=== PATIENT | female | born 1955 | race Caucasian/White ===

== ENCOUNTER 2022-07-07 14:54 | Emergency (ER) | payer MEDICARE, SELFPAY ==
[2022-07-07 16:25] VITALS: BP 182/84; PULSE 83; RESP 23; TEMP 36.9; O2SAT 94; BMI 21.2
--- NOTE | 2022-07-07 16:25 | XR_ITS ---
PROCEDURE INFORMATION: Exam: XR Chest Exam date and time: 07/07/2022 4:42 PM Age: 67 years old Clinical indication: Pain; On breathing; Additional info: Productive cough TECHNIQUE: Imaging protocol: Radiologic exam of the chest. Views: 2 views. COMPARISON: No relevant prior studies available. FINDINGS: Lungs: There is a 2 cm indistinct irregular shaped nodular density projecting over the right lower lobe as well as a vague focal opacity projecting just below the left clavicle, indeterminate. There are scattered small circumscribed nodular densities both lung angel consistent with old granulomatous disease. Remaining lung angel are clear. There are no infiltrates. Pleural spaces: Unremarkable. No pleural effusion. No pneumothorax. Heart/Mediastinum: Unremarkable. No cardiomegaly. Bones/joints: Unremarkable. IMPRESSION: Two indeterminate focal opacities both lung angel as discussed above which follow-up nonemergent CT chest recommended for further assessment.
--- NOTE | 2022-07-07 16:32 | EXP.UTC ---
Discharge Plan Disposition Patient Disposition: Home, Self-Care Condition: Good Prescriptions Prescriptions: New promethazine-DM 6.25-15 mg/5 mL Syrup 5 ml PO Q6H PRN (Reason: Cough) Qty: 240 0RF prednisone 10 mg tablet 10 mg PO DIRECTED 9 Days Qty: 21 0RF Rx Instructions: Take 4 tablets daily for 3 days, then take 2 tablets daily for 3 days, then take 1 tablet daily for 3 days, then stop. benzonatate [benzonatate] 100 mg capsule 100 mg PO TIDP PRN (Reason: Cough) Qty: 30 0RF cefdinir 300 mg capsule 300 mg PO BID Qty: 20 0RF Referrals Follow up/Referrals: Mary Pugh MD [Primary Care Provider] - See instructions Activity Restrictions/Add. Instructions Additional Instructions/Restrictions: Drink plenty of fluids. Take tylenol or ibuprofen for pain or fever. Take the medications as directed. Follow up with your regular doctor. GO TO THE ER FOR ANY WORSENING SYMPTOMS Don't start the oral steroids until tomorrow, since you had the shot here today. The cough medication (promethazine dm) will make you drowsy, so don't drive or operate heavy machinery after taking it. Clinical Impressions Clinical Impression: Acute bronchitis Instructions Patient Instructions: Acute Bronchitis, DI for Acute Bronchitis Discharge ED Provider: Will Elliott [facility] General Stated complaint: Persistant Cough Time Seen by Provider: 07/07/22 16:31 History of Present Illness Provider Complaint: She was in the hospital in [place] approx 1 month ago with difficulty breathing. She has a history of type 1 diabetes and copd. She states that for the past 5 days she has had worsening chest congestion and a productive cough with yellowish sputum. She denies shortness of breath at this time, but she states that she doesn't want to let herself get as sick as she did before when she got admitted to the hospital. She denies any fever or chills. Related Data Previous Rx's Medication Instructions Recorded benzonatate 100 mg capsule 100 mg PO TIDP PRN Cough #30 caps 07/07/22 cefdinir 300 mg capsule 300 mg PO BID #20 caps 07/07/22 prednisone 10 mg tablet 10 mg PO DIRECTED 9 days #21 07/07/22 tabs promethazine-DM 6.25 mg-15 mg/5 mL 5 ml PO Q6H PRN Cough #240 mL 07/07/22 oral syrup Allergies Allergy/AdvReac Type Severity Reaction Status Date / Time acetaminophen [From Tylenol] Allergy Verified 07/07/22 16:46 codeine Allergy Verified 07/07/22 16:46 Iodinated Contrast Media Allergy Verified 07/07/22 16:46 latex Allergy Verified 07/07/22 16:46 morphine Allergy Verified 07/07/22 16:46 PFS PFS Disclaimer: The information contained in this section may have been updated after the patient was seen, as this information can be updated by other users. Medical History Anxiety Depression Diabetes mellitus, type 2 History of gastroesophageal reflux (GERD) Hyperlipidemia Hypertension Kidney stone Migraine Seizure disorder Thyroid disease Urinary tract infection Surgical History History of cholecystectomy History of hysterectomy History of tubal ligation Social History Smoking Status: Unknown if ever smoked alcohol intake: never current occupational status: other Travel in the last 8 weeks: None ROS Obtained: Yes All systems reviewed & no additional complaints except as documented Constitutional Constitutional: Reports chills and Denies fever(s) Eyes Eyes: Denies eye discharge ENT Ears, Nose, Mouth, and Throat: Reports as per HPI Cardiovascular Cardiovascular: Denies chest pain Respiratory Respiratory: Denies shortness of breath, Reports chest congestion, Reports cough, Denies stridor and Denies wheezing Gastrointestinal Gastrointestingal: Reports nausea; Denies abdominal pain, constipation, crampin
[2022-07-07 17:27] VITALS: BP 182/84; PULSE 83; RESP 23; TEMP 36.9; O2SAT 94
== END 2022-07-07 17:32 | disposition home or self-care (01) ==
PROVIDERS: Emergency Provider Nurse Practitioner Family; PCP Family Medicine
DX: J20.9 Acute bronchitis, unspecified (principal)
CPT/HCPCS: 71046; 99212; G0463

== ENCOUNTER 2024-09-10 15:05 | Observation (INO) | payer MEDICARE, SELFPAY ==
[2024-09-10] VITALS (15 sets, daily range): BP systolic 145–200; BP diastolic 67–93; PULSE 70–84; RESP 16–22; TEMP 36.6–36.8; O2SAT 92–99; BMI 28.5; BMI 24.0
--- NOTE | 2024-09-10 15:00 | ECG_ITS ---
APPROVED REPORT Exam: Resting ECG HR:73 bpm ECG Measurements Heart Rate 73 AXES AZ 151 P 59 QRSd 86 QRS 51 QT 433 T 57 QTc 458 Conclusion Sinus rhythm Likely old septal NE No acute ischemic change Electronically signed by : MARCELINA KOCH, 09/10/2024 22:05:38
--- NOTE | 2024-09-10 15:27 | [facility].EDGENADL ---
Discharge Plan Disposition Patient Disposition: Admitted Clinical Impressions Clinical Impression: Occipital stroke, Syncope, Back pain Discharge ED Provider: Sp Esparza General Adult HPI <MYKEL Marie - Last Filed: 09/10/24 15:37> General Chief complaint: Chest Pain Stated complaint: hypotension Time Seen by Provider: 09/10/24 15:07 Mode of Arrival: EMS Source of Information: EMS Limitations: No Limitations Description of Symptoms (Recalled from ER Triage Doc. by RN): pt presents with EMS. per report pt had bp med change approx a week ago and has been experiencing low bp. pt states she is having mid shoulder blade pain and nausea. per report pt was admitted at [facility] a month ago for afib. pt currently wearing a halter monitor. Related Data Previous Rx's ?Medication ?Instructions ?Recorded benzonatate 100 mg capsule 100 mg PO TIDP PRN Cough #30 caps 07/07/22 cefdinir 300 mg capsule 300 mg PO BID #20 caps 07/07/22 prednisone 10 mg tablet 10 mg PO DIRECTED 9 days #21 07/07/22 tabs promethazine-DM 6.25 mg-15 mg/5 mL 5 ml PO Q6H PRN Cough #240 mL 07/07/22 oral syrup Allergies Allergy/AdvReac Type Severity Reaction Status Date / Time codeine Allergy Mild Rash Verified 09/10/24 15:17 Iodinated Contrast Media Allergy Unknown pt unable Verified 09/10/24 15:17 to recall latex Allergy Unknown pt unable Verified 09/10/24 15:17 to recall morphine Allergy Unknown pt uable Verified 09/10/24 15:17 to recall Penicillins Allergy Unknown pt unable Verified 09/10/24 15:17 to recall propranolol Allergy Unknown pt unable Verified 09/10/24 15:17 to recall acetaminophen (From Tylenol) Allergy Rash Verified 09/10/24 15:17 <Sp Esparza MD - Last Filed: 09/10/24 21:59> History of Present Illness HPI narrative: Please note that above description of symptoms, in this electronic medical record under categorization of recalled from ER triage doctor by RN are reflective of an initial nursing assessment, however, is not reflective of my full history and physical exam that was personally taken and clarified. Consequentially, this preceding description of symptoms, which may include the patient's categorized chief complaint in the EMR, do not reflect my personal clinical impression, and the ultimate description of history of present illness and patient stated complaints should be deferred to this section of the note. Unless stated otherwise or congruent with this section of the note, additional signs, symptoms, or incongruence should be interpreted as inaccurate with my clinical impression. [facility] <MYKEL Marie - Last Filed: 09/10/24 15:37> [facility] Disclaimer: The information contained in this section may have been updated after the patient was seen, as this information can be updated by other users. Medical History Kidney failure COPD (chronic obstructive pulmonary disease) Afib CHF (congestive heart failure) Schizophrenia Thyroid disease Depression Anxiety Seizure disorder History of gastroesophageal reflux (GERD) Urinary tract infection Kidney stone Migraine Diabetes mellitus, type 2 Hyperlipidemia Hypertension Surgical History History of tubal ligation History of hysterectomy History of cholecystectomy Social History Smoking Status: Former smoker alcohol intake: never current occupational status: other Travel in the last 8 weeks: None Have you lived/traveled outside [place] in past 30 days?: No Contact w/someone who lives/traveled outside US past 30 days?: No Exposure to someone with infectious disease in past 14 days?: No Do you have a fever (greater than 100.4 F or 38 C)?: No Have you tested positive for COVID-19: No Exposed to someone with COVID-19 in past 14 days?: No Do you have a sore throat?: No Do you have a cough?: No Do you have any weakness?: No Do you have any diarrhea?: No Are you experiencing any unusual bleeding?: No Do you have any muscle aches/pain?: No Do you have any abdominal pain?: No Are you experiencing loss of taste or smell?: No <MYKEL Marie - Last Filed: 09/10/24 15:37> ROS Obtained: Yes Systems reviewed as appropriate & no additional complaints except as documented Physical Exam <MYKEL Marie - Last Filed: 09/10/24 15:37> General General appearance: alert and in no apparent distress Head Head exam: atraumatic and normal inspection Eye Eye exam: Present normal appearance, PERRL and EOMI ENT ENT exam: Present normal exam, normal oropharynx and mucous membranes moist Neck Neck exam: Present normal inspection, full ROM and trachea midline; Absent lymphadenopathy Chest Chest inspection: Present normal inspection and symmetric chest wall rise Respiratory Respiratory exam: Present normal lung sounds bilaterally; Absent accessory muscle use Cardiovascular Cardiovascular exam: Present regular rate, normal rhythm, normal heart sounds, +S1 and +S2 Abdominal Exam Abdominal exam: Present soft and normal bowel sounds; Absent tenderness, guarding or rebound Extremities Exam Extremities exam: Present normal inspection and full ROM Neurological Exam Neurological exam: Present alert, oriented X3 and CN II-XII intact Psychiatric Psychiatric exam: Present normal affect and normal mood Skin Skin exam: Present warm, dry and normal color Lymphatic Lymphatic Findings: no adenopathy Medical Decision Making <MYKEL aMrie - Last Filed: 09/10/24 15:37> Medical Records Screening: Per USPSTF and CDC recommendations, given the prevalence of disease in our region, it is our hospital?s policy to screen for HIV and viral Hepatitis for all patients aged 18 and over and those with ongoing risk factors. Vital Signs: 09/10/24 15:06 09/10/24 15:47 09/10/24 16:15 Temperature 97.8 F Temperature Source Oral Pulse Rate Pulse Rate [Right Radial] 70 Respiratory Rate 18 19 21 Blood Pressure 162/67 H Blood Pressure [Right Arm] 155/69 H Blood Pressure Mean [Right Arm] 97 Blood Pressure Source [Right Arm] Automatic Cuff Blood Pressure Position [Right Arm] Sitting 02 Sat by Pulse Oximetry 99 Oxygen Delivery Method Room Air Room Air 09/10/24 16:26 09/10/24 16:30 09/10/24 16:33 Temperature Temperature Source Pulse Rate 71 71 Pulse Rate [Right Radial] Respiratory Rate 17 16 18 Blood Pressure 178/84 H 200/93 H Blood Pressure [Right Arm] Blood Pressure Mean [Right Arm] Blood Pressure Source [Right Arm] Blood Pressure Position [Right Arm] 02 Sat by Pulse Oximetry 95 95 Oxygen Delivery Method 09/10/24 16:45 09/10/24 17:00 09/10/24 17:30 Temperature Temperature Source Pulse Rate 74 76 74 Pulse Rate [Right Radial] Respiratory Rate 20 19 18 Blood Pressure 184/77 H 185/79 H Blood Pressure [Right Arm] Blood Pressure Mean [Right Arm] Blood Pressure Source [Right Arm] Blood Pressure Position [Right Arm] 02 Sat by Pulse Oximetry 98 96 96 Oxygen Delivery Method 09/10/24 18:00 09/10/24 18:18 09/10/24 18:30 Temperature Temperature Source Pulse Rate 74 75 71 Pulse Rate [Right Radial] Respiratory Rate Blood Pressure 189/78 H 193/89 H 175/79 H Blood Pressure [Right Arm] Blood Pressure Mean [Right Arm] Blood Pressure Source [Right Arm] Blood Pressure Position [Right Arm] 02 Sat by Pulse Oximetry 97 95 96 Oxygen Delivery Method 09/10/24 20:09 09/10/24 20:19 Temperature 98.2 F Temperature Source Pulse Rate 79 Pulse Rate [Right Radial] Respiratory Rate 22 Blood Pressure 154/79 H Blood Pressure [Right Arm] Blood Pressure Mean [Right Arm] Blood Pressure Source [Right Arm] Blood Pressure Position [Right Arm] 02 Sat by Pulse Oximetry Oxygen Delivery Method Room Air Room Air Lab Data Lab Results 09/10/24 15:42: VBG pH 7.30 L, VBG pCO2 57.9 H, VBG pO2 35.4, VBG HCO3 27.8, VBG Total CO2 29.6 H, VBG O2 Saturation 64.2, VBG Base Excess 1.3, VBG Lactic Acid 1.7 09/10/24 16:20: WBC 5.2, RBC 3.87 L, Hgb 11.4 L, Hct 34.0 L, MCV 87.9, MCH 29.5, MCHC 33.5, RDW 12.7, Plt Count 150, MPV 10.9 H, Neut % (Auto) 76.7, Lymph % (Auto) 14.9, Mcculloch % (Auto) 6.3, Eos % (Auto) 1.5, Baso % (Auto) 0.4, Neut # (Auto) 4.0, Lymph # (Auto) 0.8, Mcculloch # (Auto) 0.3, Eos # (Auto) 0.1, Baso # (Auto) 0.0, PT 10.5, INR 0.94, APTT 24.1, Sodium 131 L, Potassium 5.0, Chloride 94 L, Carbon Dioxide 31 H, Anion Gap 11.0, BUN 21 H, Creatinine 1.10 H, Estimated Creat Clear 57, Estimated GFR 50 L, Est GFR ( Amer) 60, Glucose 415 H*, Hemoglobin A1c 8.5 H, Calcium 8.2 L, Magnesium 2.1, Total Bilirubin 0.3, AST 31, ALT 24, Alkaline Phosphatase 98, Troponin I < 0.01, C-Reactive Protein 1.2, NT-Pro-B Natriuret Pep 772 H, Total Protein 6.5, Albumin 4.2, Globulin 2.3, Albumin/Globulin Ratio 1.8, TSH 0.22 L, Thyroxine (T4) 14.6 H 09/10/24 18:08: Lactate 0.9, Troponin I < 0.01 09/10/24 16:20 09/10/24 16:20 Orders (Tests/Meds): ED MEDICATIONS Generic Name Dose Route Start Last Admin Trade Name Freq PRN Reason Stop Dose Admin Acetaminophen 650 mg 09/10/24 20:10 Acetaminophen 325mg Tab PO 10/10/24 20:09 Q4HP PRN Fever or Mild Pain (1-3) Ibuprofen 400 mg 09/10/24 20:10 Ibuprofen 400 Mg Tablet PO 10/10/24 20:09 Q6HP PRN Mild Pain (1-3) Insulin Human Lispro 0 unit 09/10/24 21:00 Humalog 100 Units/Ml 10ml Vial (Ssi) SUBCUT 10/10/24 20:59 ACHS CHRISTEL Protocol Ondansetron HCl 4 mg 09/10/24 20:10 Ondansetron 4mg/2ml Vial IV 10/10/24 20:09 Q8HP PRN Nausea Sodium Chloride 10 ml 09/10/24 15:13 Sodium Chloride 0.9% 10ml Flush Syringe IV 10/10/24 15:12 NEEDED PRN Maintain IV Site Discontinued Medications Generic Name Dose Route Start Last Admin Trade Name Freq PRN Reason Stop Dose Admin Acetaminophen 1,000 mg 09/10/24 16:53 09/10/24 16:54 Acetaminophen 500mg Tab PO 09/10/24 16:54 1,000 mg ONCE ONE Administration Aspirin 324 mg 09/10/24 15:39 09/10/24 16:51 Aspirin 81mg Chewable Tablet PO 09/10/24 15:40 324 mg ONCE ONE Administration Diphenhydramine HCl 50 mg 09/10/24 15:39 09/10/24 16:51 Diphenhydramine 50mg/Ml Vial IV 09/10/24 15:40 50 mg ONCE ONE Administration Azithromycin 500 mg/ Sodium 250 mls @ 250 mls/hr 09/10/24 18:44 09/10/24 19:05 Chloride IV 09/10/24 18:45 250 mls/hr ONCE ONE Administration Insulin Human Regular 7 unit 09/10/24 17:25 09/10/24 18:05 Insulin Human Regular 100 Units/Ml 10ml Vial 0.1 unit/kg (7 unit) 09/10/24 17:26 7 unit IV Administration ONCE ONE Iopamidol 140 ml 09/10/24 17:42 09/10/24 17:45 Iopamidol-370 (76%);100ml Bottle IV 09/10/24 17:43 140 ml ONCE ONE Administration Methylprednisolone Sodium Succinate 125 mg 09/10/24 15:39 09/10/24 16:51 Methylprednisolone Sod Succ 125mg Vial IV 09/10/24 15:40 125 mg ONCE ONE Administration Sodium Chloride 10 ml 09/10/24 17:42 09/10/24 17:45 Sodium Chloride 0.9% 10ml Syr (Rad Only) IV 09/10/24 17:43 10 ml ONCE ONE Administration Sodium Chloride 100 ml 09/10/24 17:42 09/10/24 17:45 0.9 % Sodium Chloride 50 Ml Vial IV 09/10/24 17:43 100 ml ONCE ONE Administration ORDERS Category Date Time Status CT angio abdomen pelvis Stat Cat Scan 09/10/24 15:[address] angio head Stat Cat Scan 09/10/24 15:[address] angio neck Stat Cat Scan 09/10/24 15:[address] head/brain wo con Stat Cat Scan 09/10/24 15:40 Completed CTA Chest [CT angio chest - dissection] Stat Cat Scan 09/10/24 15:39 Completed POCUS Point of Care (ER Only) Stat Exams 09/10/24 16:03 Completed XR chest portable Stat Exams 09/10/24 15:40 Completed CRP [C-Reactive Protein] Stat Lab 09/10/24 16:20 Completed Complete Blood Count Auto Diff AMLAB Lab 09/11/24 06:00 Ordered Complete Blood Count Auto Diff Stat Lab 09/10/24 16:20 Completed Comprehensive Metabolic Panel AMLAB Lab 09/11/24 06:00 Ordered Comprehensive Metabolic Panel Stat Lab 09/10/24 16:20 Completed Hemoglobin A1C Stat Lab 09/10/24 16:20 Completed Lactic Acid Stat Lab 09/10/24 18:08 Completed Magnesium AMLAB Lab 09/11/24 06:00 Ordered Magnesium Stat Lab 09/10/24 16:20 Completed NT Pro Brain Natriuretic Pep. Stat Lab 09/10/24 16:20 Completed PT INR [Prothrombin Time INR] Stat Lab 09/10/24 16:20 Completed PTT [Activated Partial Thrombo Time] Stat Lab 09/10/24 16:20 Completed T4 (Thyroxine) Stat Lab 09/10/24 16:20 Completed TSH [Thyroid Stimulating Hormone] Stat Lab 09/10/24 16:20 Completed Troponin I Q3H Lab 09/10/24 18:08 Completed Troponin I Q3H Lab 09/10/24 21:35 Received Troponin I Stat Lab 09/10/24 16:20 Completed Urinalysis and Microscopic Stat Lab 09/10/24 15:41 Ordered Urinalysis-Acute [Urinalysis and Microscopic] Routine Lab 09/10/24 20:22 Ordered Venous Blood Gas Stat RT 09/10/24 15:42 Completed Medical Decision Narrative: In summary patient is a [age, sex] who presents to the emergency department for evaluation of [complaint]. Patient is [hemodynamically stable/unstable] upon arrival, [febrile/afebrile]. [Unremarkable physical exam, nonfocal exam versus focal remarkable exam]. Differential diagnosis includes [DDx]. Initial workup will be conducted with [hematologic labs, imaging, respiratory swab, describe workup]. Initial interventions include [crystalloid bolus, medications, p.o. challenge, etc.] initial workup reviewed by me [hematologic labs are remarkable for... Imaging remarkable for... Urinalysis remarkable for]. Upon repeat evaluation [patient had acceptable resolution of symptoms, had persistent pain for which additional interventions were conducted (describe interventions), tolerated p.o., was ambulatory, etc.]. Given this [patient is appropriate for discharge at this time and will be discharged with a prescription for... The case was discussed with hospital medicine regarding management and they will admit the patient their service for continued evaluation at this time... Etc.] Places where you can increase complexity: I informally interpreted the patient's chest x-ray or CT read and is remarkable for... Documenting what the trade union secretary shows with rate and rhythm Consideration of test but deferring. Ex: I considered chest x-ray on this patient however given that they have no oxygen requirement and are clear to auscultation all lung angel will be deferred. Social determinants of health: Given that patient is undomiciled increases complexity. Given that patient has polysubstance abuse compounds all aspects of care <Sp Esparza MD - Last Filed: 09/10/24 21:59> Medical Records Medical records reviewed: Yes I reviewed the patient's medical records. [place] Inquiry Pt receiving controlled substance: No [place] was queried for this patient: No Vital Signs: 09/10/24 15:06 09/10/24 15:47 09/10/24 16:15 Temperature 97.8 F Temperature Source Oral Pulse Rate Pulse Rate [Right Radial] 70 Respiratory Rate 18 19 21 Blood Pressure 162/67 H Blood Pressure [Right Arm] 155/69 H Blood Pressure Mean [Right Arm] 97 Blood Pressure Source [Right Arm] Automatic Cuff Blood Pressure Position [Right Arm] Sitting 02 Sat by Pulse Oximetry 99 Oxygen Delivery Method Room Air Room Air 09/10/24 16:26 09/10/24 16:30 09/10/24 16:33 Temperature Temperature Source Pulse Rate 71 71 Pulse Rate [Right Radial] Respiratory Rate 17 16 18 Blood Pressure 178/84 H 200/93 H Blood Pressure [Right Arm] Blood Pressure Mean [Right Arm] Blood Pressure Source [Right Arm] Blood Pressure Position [Right Arm] 02 Sat by Pulse Oximetry 95 95 Oxygen Delivery Method 09/10/24 16:45 09/10/24 17:00 09/10/24 17:30 Temperature Temperature Source Pulse Rate 74 76 74 Pulse Rate [Right Radial] Respiratory Rate 20 19 18 Blood Pressure 184/77 H 185/79 H Blood Pressure [Right Arm] Blood Pressure Mean [Right Arm] Blood Pressure Source [Right Arm] Blood Pressure Position [Right Arm] 02 Sat by Pulse Oximetry 98 96 96 Oxygen Delivery Method 09/10/24 18:00 09/10/24 18:18 09/10/24 18:30 Temperature Temperature Source Pulse Rate 74 75 71 Pulse Rate [Right Radial] Respiratory Rate Blood Pressure 189/78 H 193/89 H 175/79 H Blood Pressure [Right Arm] Blood Pressure Mean [Right Arm] Blood Pressure Source [Right Arm] Blood Pressure Position [Right Arm] 02 Sat by Pulse Oximetry 97 95 96 Oxygen Delivery Method 09/10/24 20:09 09/10/24 20:19 Temperature 98.2 F Temperature Source Pulse Rate 79 Pulse Rate [Right Radial] Respiratory Rate 22 Blood Pressure 154/79 H Blood Pressure [Right Arm] Blood Pressure Mean [Right Arm] Blood Pressure Source [Right Arm] Blood Pressure Position [Right Arm] 02 Sat by Pulse Oximetry Oxygen Delivery Method Room Air Room Air Lab Data Lab Results 09/10/24 15:42: VBG pH 7.30 L, VBG pCO2 57.9 H, VBG pO2 35.4, VBG HCO3 27.8, VBG Total CO2 29.6 H, VBG O2 Saturation 64.2, VBG Base Excess 1.3, VBG Lactic Acid 1.7 09/10/24 16:20: WBC 5.2, RBC 3.87 L, Hgb 11.4 L, Hct 34.0 L, MCV 87.9, MCH 29.5, MCHC 33.5, RDW 12.7, Plt Count 150, MPV 10.9 H, Neut % (Auto) 76.7, Lymph % (Auto) 14.9, Mcculloch % (Auto) 6.3, Eos % (Auto) 1.5, Baso % (Auto) 0.4, Neut # (Auto) 4.0, Lymph # (Auto) 0.8, Mcculloch # (Auto) 0.3, Eos # (Auto) 0.1, Baso # (Auto) 0.0, PT 10.5, INR 0.94, APTT 24.1, Sodium 131 L, Potassium 5.0, Chloride 94 L, Carbon Dioxide 31 H, Anion Gap 11.0, BUN 21 H, Creatinine 1.10 H, Estimated Creat Clear 57, Estimated GFR 50 L, Est GFR ( Amer) 60, Glucose 415 H*, Hemoglobin A1c 8.5 H, Calcium 8.2 L, Magnesium 2.1, Total Bilirubin 0.3, AST 31, ALT 24, Alkaline Phosphatase 98, Troponin I < 0.01, C-Reactive Protein 1.2, NT-Pro-B Natriuret Pep 772 H, Total Protein 6.5, Albumin 4.2, Globulin 2.3, Albumin/Globulin Ratio 1.8, TSH 0.22 L, Thyroxine (T4) 14.6 H 09/10/24 18:08: Lactate 0.9, Troponin I < 0.01 Orders (Tests/Meds): ED MEDICATIONS Generic Name Dose Route Start Last Admin Trade Name Emmanuel PRN Reason Stop Dose Admin Acetaminophen 650 mg 09/10/24 20:10 Acetaminophen 325mg Tab PO 10/10/24 20:09 Q4HP PRN Fever or Mild Pain (1-3) Ibuprofen 400 mg 09/10/24 20:10 Ibuprofen 400 Mg Tablet PO 10/10/24 20:09 Q6HP PRN Mild Pain (1-3) Insulin Human Lispro 0 unit 09/10/24 21:00 Humalog 100 Units/Ml 10ml Vial (Ssi) SUBCUT 10/10/24 20:59 ACHS CHRISTEL Protocol Ondansetron HCl 4 mg 09/10/24 20:10 Ondansetron 4mg/2ml Vial IV 10/10/24 20:09 Q8HP PRN Nausea Sodium Chloride 10 ml 09/10/24 15:13 Sodium Chloride 0.9% 10ml Flush Syringe IV 10/10/24 15:12 NEEDED PRN Maintain IV Site Discontinued Medications Generic Name Dose Route Start Last Admin Trade Name Emmanuel PRN Reason Stop Dose Admin Acetaminophen 1,000 mg 09/10/24 16:53 09/10/24 16:54 Acetaminophen 500mg Tab PO 09/10/24 16:54 1,000 mg ONCE ONE Administration Aspirin 324 mg 09/10/24 15:39 09/10/24 16:51 Aspirin 81mg Chewable Tablet PO 09/10/24 15:40 324 mg ONCE ONE Administration Diphenhydramine HCl 50 mg 09/10/24 15:39 09/10/24 16:51 Diphenhydramine 50mg/Ml Vial IV 09/10/24 15:40 50 mg ONCE ONE Administration Azithromycin 500 mg/ Sodium 250 mls @ 250 mls/hr 09/10/24 18:44 09/10/24 19:05 Chloride IV 09/10/24 18:45 250 mls/hr ONCE ONE Administration Insulin Human Regular 7 unit 09/10/24 17:25 09/10/24 18:05 Insulin Human Regular 100 Units/Ml 10ml Vial 0.1 unit/kg (7 unit) 09/10/24 17:26 7 unit IV Administration ONCE ONE Iopamidol 140 ml 09/10/24 17:42 09/10/24 17:45 Iopamidol-370 (76%);100ml Bottle IV 09/10/24 17:43 140 ml ONCE ONE Administration Methylprednisolone Sodium Succinate 125 mg 09/10/24 15:39 09/10/24 16:51 Methylprednisolone Sod Succ 125mg Vial IV 09/10/24 15:40 125 mg ONCE ONE Administration Sodium Chloride 10 ml 09/10/24 17:42 09/10/24 17:45 Sodium Chloride 0.9% 10ml Syr (Rad Only) IV 09/10/24 17:43 10 ml ONCE ONE Administration Sodium Chloride 100 ml 09/10/24 17:42 09/10/24 17:45 0.9 % Sodium Chloride 50 Ml Vial IV 09/10/24 17:43 100 ml ONCE ONE Administration ORDERS Category Date Time Status CT angio abdomen pelvis Stat Cat Scan 09/10/24 15:[address] angio head Stat Cat Scan 09/10/24 15:[address] angio neck Stat Cat Scan 09/10/24 15:[address] head/brain wo con Stat Cat Scan 09/10/24 15:40 Completed CTA Chest [CT angio chest - dissection] Stat Cat Scan 09/10/24 15:39 Completed POCUS Point of Care (ER Only) Stat Exams 09/10/24 16:03 Completed XR chest portable Stat Exams 09/10/24 15:40 Completed CRP [C-Reactive Protein] Stat Lab 09/10/24 16:20 Completed Complete Blood Count Auto Diff AMLAB Lab 09/11/24 06:00 Ordered Complete Blood Count Auto Diff Stat Lab 09/10/24 16:20 Completed Comprehensive Metabolic Panel AMLAB Lab 09/11/24 06:00 Ordered Comprehensive Metabolic Panel Stat Lab 09/10/24 16:20 Completed Hemoglobin A1C Stat Lab 09/10/24 16:20 Completed Lactic Acid Stat Lab 09/10/24 18:08 Completed Magnesium AMLAB Lab 09/11/24 06:00 Ordered Magnesium Stat Lab 09/10/24 16:20 Completed NT Pro Brain Natriuretic Pep. Stat Lab 09/10/24 16:20 Completed PT INR [Prothrombin Time INR] Stat Lab 09/10/24 16:20 Completed PTT [Activated Partial Thrombo Time] Stat Lab 09/10/24 16:20 Completed T4 (Thyroxine) Stat Lab 09/10/24 16:20 Completed TSH [Thyroid Stimulating Hormone] Stat Lab 09/10/24 16:20 Completed Troponin I Q3H Lab 09/10/24 18:08 Completed Troponin I Q3H Lab 09/10/24 21:35 Received Troponin I Stat Lab 09/10/24 16:20 Completed Urinalysis and Microscopic Stat Lab 09/10/24 15:41 Ordered Urinalysis-Acute [Urinalysis and Microscopic] Routine Lab 09/10/24 20:22 Ordered Venous Blood Gas Stat RT 09/10/24 15:42 Completed HEART Score History (anamnesis): Highly suspicious ECG: Normal Age: >65 years Risk factors: 3 or more risk factors Troponin: </= normal limit HEART Score: 6 Medical Decision Narrative: 69-year-old female history of hypertension, hyperlipidemia, type 2 diabetes, COPD not still smoking, not on oxygen, hypothyroidism, CHF presenting with back pain. Patient states that she was at lunch just prior to arrival. Was doing nothing in particular, suddenly got sharp, burning/throbbing pain between her shoulder blades that radiated up to the back of her neck and left side of her jaw. No upper extremity symptoms. No diaphoresis, nausea, syncope. She does state that at that time she felt lightheaded, started to get tunnel vision, but did not completely syncopized or lose vision in either eye. Blood pressure was taken, was exceedingly low with blood pressure in the 80s over 40s, nontachycardic with heart rate in the 70s or 80s. Shortly thereafter, allowed her to drink water, settling, improved to 1 15-1 20 systolic and patient was feeling better. Came in for further evaluation. States that she is not currently having symptoms, never had chest pain, abdominal pain, etc. History was obtained via conversation with patient and daughter. On arrival, patient hemodynamically stable, alert, oriented x4, appropriate, GCS 15, moving all extremities spontaneously, pupils equal and reactive to light. Full physical exam performed and significant for NIHSS 0. Speaking in full sentences. Cardiac exam with small right upper sternal border murmur. No lower extremity edema. Pulses equal and symmetric in upper and lower extremities. No pulsatile abdominal mass. Lungs are clear. Abdomen is soft, but mildly tender in left upper quadrant. Differential includes microvascular coronary artery disease, CHF, ACS, NE, coronary artery dissection, pneumothorax, PE, dissection, pericarditis, myocarditis, pneumothorax, aortic aneurysm, pneumonia, bronchitis, PUD, gastritis, enteritis, gastroenteritis, pancreatitis, SBO, colitis, diverticulitis, nephrolithiasis, UTI, cholecystitis, choledocholithiasis, appendicitis, torsion, hepatitis, aortic pathology, mesenteric ischemia among others Patient placed on continuous cardiac monitoring and continuous pulse ox with initial blood pressure 155/69, heart rate 70, saturation 99% on room air. Independent interpretation of EKG shows sinus rhythm 73 bpm with no acute ischemic change. MS interval 151, QRS 86, QTc 458. Normal axis. Patient was given full dose aspirin for symptomatic management and correction of underlying abnormalities. Workup independently interpreted and significant for nonactionable CBC or coags. Patient's blood gas also nonactionable other than mildly elevated CO2 which was treated with steroids and azithromycin. Lungs without wheezes on exam, so nebulizer not administered to prevent tachycardia out of concern for potential dissection pathology. Sodium mildly low at 131, creatinine 1.1, likely due to underlying CKD which was discussed with daughter. Glucose elevated 415, patient given IV insulin for this with associated hemoglobin A1c 8.5. Troponin negative, CRP negative, BNP elevated 772, no hypoxemia or radiographic findings of CHF. On independent interpretation of imaging, patient has no intracranial hemorrhage, dissection, vascular malady of the head or neck or chest, no pneumothorax, but does have groundglass opacities consistent with viral versus atypical pneumonia. Given azithromycin for this. CT angiogram of the abdomen and pelvis is negative. Patient does have asymmetric hypodensity left posterior occipital lobe on CT head without contrast concerning for subacute infarct. See radiology read for full review of final results. Heart score 6. Results relayed to patient and daughter, ultimately it was recommended the patient be admitted to the hospital for risk factor mitigation, as well as MRI of the head for further evaluation. They are agreeable. Patient still without symptoms. I had interactive discussion with hospitalist who agreed to admission and further workup. Given patient presentation, workup, history, this most likely represents subacute infarct and potential cardiac event. Because patient high risk for clinical decompensation, deemed appropriate for inpatient admission. Results were relayed to patient who voiced understanding and patient was agreeable to inpatient admission and management. Patient was admitted to the hospital for further definitive management. 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 Electronic wire mesh gate assembler of the spoken language may permit errors. Although I have reviewed the note, some errors may still exist. Critical Care <Sp Esparza MD - Last Filed: 09/10/24 21:59> Critical Care Time Critical Care Time: Yes (neuro, cardiac) Attestation: On 09/10/24, the high probability of a clinically significant, sudden or life threatening deterioration of the following system(s) required my full and direct attention, intervention and personal management. The time I documented below is in addition to time spent performing reported procedures but includes the following listed in this critical care notation. Total Time Total Critical Care Time: 45
--- NOTE | 2024-09-10 15:38 | PC.NURSE ---
u/s guided IV attempted x1, blood return given but quit filling tube.
--- NOTE | 2024-09-10 15:39 | CT_ITS ---
PROCEDURE INFORMATION: Exam: CTA Chest With Contrast Exam date and time: 09/10/2024 5:49 PM Age: 69 years old Clinical indication: Shortness of breath; Additional info: Cp to back, abd pain near syncope, vision deficit TECHNIQUE: Imaging protocol: Computed tomographic angiography of the chest with contrast. Exam focused on the arteries. 3D rendering (Not supervised by radiologist): MIP and/or 3D reconstructed images were created by the technologist. Radiation optimization: All CT scans at this facility use at least one of these dose optimization techniques: automated exposure control; mA and/or kV adjustment per patient size (includes targeted exams where dose is matched to clinical indication); or iterative reconstruction. Contrast material: ISOVUE; Contrast volume: 80 ml; Contrast route: INTRAVENOUS (IV); COMPARISON: 1. CR XR CHEST PORTABLE 09/10/2024 4:[address] ANGIO ABDOMEN PELVIS 09/10/2024 5:49 PM FINDINGS: Pulmonary arteries: Normal. No pulmonary emboli. Aorta: Mild thoracic aortic atherosclerotic disease without aneurysm or dissection. Lungs: 4 mm noncalcified nodule in the right lower lobe. Left lower lobe calcified granuloma. Bronchial wall thickening. Minimal ground-glass opacities in the upper lobes. Pleural spaces: Unremarkable. No pneumothorax. No pleural effusion. Heart: Unremarkable. No cardiomegaly. No pericardial effusion. Coronary arteries: Mild coronary artery calcification. Lymph nodes: Unremarkable. No enlarged lymph nodes. Bones/joints: Osteopenia. T3 sclerotic lesion is probably a bone island. Soft tissues: Unremarkable. IMPRESSION: 1. Mild atherosclerotic disease without aneurysm or dissection. 2. No evidence of a pulmonary embolism. 3. Bronchial wall thickening. Minimal ground-glass opacities in the upper lobes. Findings could be secondary to bronchitis or atypical infection. 4. 4 mm noncalcified nodule in the right lower lobe. For patients at low risk (minimal or absent history of smoking and of other known risk factors), no routine follow-up is indicated. For patients at high risk (history of smoking or of other known risk factors), consider optional CT Chest at 12 months. (Reference: Sigifredo) REFERENCES: Sigifredo Garcia et al. Guidelines for Management of Incidental Pulmonary Nodules Detected on CT Images: From the Fleischner Society 2017. Radiology. 2017;284(1):228-243.
--- NOTE | 2024-09-10 15:39 | CT_ITS ---
PROCEDURE INFORMATION: Exam: CTA Abdomen and Pelvis With Contrast Exam date and time: 09/10/2024 5:49 PM Age: 69 years old Clinical indication: Shortness of breath; Additional info: Cp to back, near syncope, vision deficit TECHNIQUE: Imaging protocol: Computed tomographic angiography of the abdomen and pelvis with contrast. Exam focused on the arteries. 3D rendering (Not supervised by radiologist): MIP and/or 3D reconstructed images were created by the technologist. Radiation optimization: All CT scans at this facility use at least one of these dose optimization techniques: automated exposure control; mA and/or kV adjustment per patient size (includes targeted exams where dose is matched to clinical indication); or iterative reconstruction. Contrast material: ISOVUE; Contrast volume: 80 ml; Contrast route: INTRAVENOUS (IV); COMPARISON: CT ANGIO CHEST 09/10/2024 5:49 PM FINDINGS: Aorta: No aortic aneurysm. No aortic dissection. Moderate calcified plaque in the abdominal aorta. Celiac trunk and mesenteric arteries: No occlusion or significant stenosis. Renal arteries: No occlusion or significant stenosis. Right iliac arteries: No occlusion or significant stenosis. Mild scattered calcified plaque. Left iliac arteries: No occlusion or significant stenosis. Mild scattered calcified plaque. Liver: Unremarkable. No mass. Gallbladder and biliary ducts: Status post cholecystectomy. No significant biliary ductal dilitation. Pancreas: Atrophic pancreas. Spleen: Unremarkable. No splenomegaly. Adrenal glands: Unremarkable. No mass. Kidneys and ureters: Unremarkable. No solid mass. No hydronephrosis. Stomach and bowel: No dilated or thickened bowel loops. Moderate fecal material in the colon. Previous Anita fundoplication. Appendix: No evidence of appendicitis. Intraperitoneal space: Unremarkable. No free air. No significant fluid collection. Lymph nodes: Unremarkable. No enlarged lymph nodes. Urinary bladder: Unremarkable. No mass. Reproductive: Status post hysterectomy. No adnexal masses. Bones/joints: Osteopenia. Soft tissues: Unremarkable. IMPRESSION: Acty-rq-[id number] atherosclerotic disease. No aneurysm or dissection. REFERENCES: Sigifredo Garcia, et al. Guidelines for Management of Incidental Pulmonary Nodules Detected on CT Images: From the Fleischner Society 2017. Radiology. 2017;284(1):228-243.
--- NOTE | 2024-09-10 15:40 | CT_ITS ---
PROCEDURE INFORMATION: Exam: CT Head Without Contrast Exam date and time: 09/10/2024 5:43 PM Age: 69 years old Clinical indication: Syncope and collapse; Additional info: Cp to back, abd pain near syncope, vision deficit TECHNIQUE: Imaging protocol: Computed tomography of the head without contrast. Radiation optimization: All CT scans at this facility use at least one of these dose optimization techniques: automated exposure control; mA and/or kV adjustment per patient size (includes targeted exams where dose is matched to clinical indication); or iterative reconstruction. COMPARISON: No relevant prior studies available. FINDINGS: Brain: Subtle area of loss of moore-white differentiation in the inferior left occipital lobe. No parenchymal hemorrhage. No mass effect. Cerebral ventricles: No ventriculomegaly. Paranasal sinuses: Visualized sinuses are unremarkable. No fluid levels. Mastoid air cells: Visualized mastoid air cells are well aerated. Bones: Unremarkable. No acute fracture. Soft tissues: Unremarkable. IMPRESSION: Subtle area of loss of moore-white differentiation in the inferior left occipital lobe is suspicious for small infarct. No hemorrhage or mass effect.
--- NOTE | 2024-09-10 15:40 | XR_ITS ---
PROCEDURE INFORMATION: Exam: XR Chest Exam date and time: 09/10/2024 4:29 PM Age: 69 years old Clinical indication: Shortness of breath; Sternal or substernal pain; Additional info: SOA cp near syncope TECHNIQUE: Imaging protocol: Radiologic exam of the chest. Views: 1 view. COMPARISON: CR XR CHEST 2V 07/07/2022 4:42 PM FINDINGS: Lungs: Unchanged left lung base calcified granuloma. No acute pulmonary opacities. Pleural spaces: Normal. No pleural effusion. No pneumothorax. Heart/Mediastinum: Normal. No cardiomegaly. Vasculature: Atherosclerotic plaque in the aortic arch. Bones/joints: Unremarkable. IMPRESSION: No acute findings.
--- NOTE | 2024-09-10 15:40 | CT_ITS ---
PROCEDURE INFORMATION: Exam: CTA Neck With Contrast Exam date and time: 09/10/2024 5:46 PM Age: 69 years old Clinical indication: Visual disturbance; Additional info: Cp to back, abd pain near syncope, vision deficit TECHNIQUE: Imaging protocol: Computed tomographic angiography of the neck with contrast. Exam focused on the cervical segments of the vasculature. 3D rendering (Not supervised by radiologist): MIP and/or 3D reconstructed images were created by the technologist. Radiation optimization: All CT scans at this facility use at least one of these dose optimization techniques: automated exposure control; mA and/or kV adjustment per patient size (includes targeted exams where dose is matched to clinical indication); or iterative reconstruction. Contrast material: ISOVUE; Contrast volume: 80 ml; Contrast route: INTRAVENOUS (IV); COMPARISON: CT ANGIO HEAD 09/10/2024 5:46 PM FINDINGS: Right common carotid artery: Proximal segment motion affected. Mild tortuosity. No stenosis. No dissection or occlusion. Right internal carotid artery: Mild calcific atherosclerosis in the right carotid bulb and proximal segment. Mild-moderate tortuosity. No stenosis. No dissection or occlusion. Right external carotid artery: Mildly motion affected. No gross abnormality. No stenosis. No dissection or occlusion. Left common carotid artery: Mild proximal calcific plaque. Mid segment moderately motion affected. No stenosis. No dissection or occlusion. Left internal carotid artery: Mild calcific plaque in the left carotid bulb. Mild left ICA tortuosity and kinking. No stenosis. No dissection or occlusion. Left external carotid artery: Normal. No stenosis. No dissection or occlusion. Right vertebral artery: Mild calcific plaque in the proximal V2 segment. No stenosis. No dissection or occlusion. Left vertebral artery: Normal. No stenosis. No dissection or occlusion. Brachiocephalic artery: The brachiocephalic artery is unremarkable. Right subclavian artery: The right subclavian artery demonstrates mild calcific plaque without stenosis. Left subclavian artery: The left subclavian artery demonstrates mild calcific plaque without stenosis. Aorta: The visualized aortic arch demonstrates mild ectasia and calcific plaque without evidence of dissection or gross aneurysm. Thyroid: The thyroid gland is moderately atrophic. Correlate clinically for evidence of hypothyroidism. Soft tissues: No significant soft tissue swelling or hematoma. Bones/joints: No acute osseous abnormalities are identified. Multilevel moderate cervical disc osteoarthritic changes. Grade 1 osteoarthritic anterolisthesis C3-C4. Lungs: Mild pleuroparenchymal scarring in the pulmonary apices bilaterally. IMPRESSION: 1. No acute findings. No evidence of arterial occlusion, significant stenosis, dissection, or aneurysm/pseudoaneurysm. 2. Nonemergent findings detailed above. REFERENCES: NASCET CRITERIA. The degree of stenosis in the cervical segment of the internal carotid artery is based on NASCET criteria. Normal is no stenosis. Mild is less than 50% stenosis. Moderate is 50-69% stenosis. Severe is 70% to 99% stenosis. Total occlusion is no detectable patent lumen.
--- NOTE | 2024-09-10 15:40 | CT_ITS ---
PROCEDURE INFORMATION: Exam: CTA Head With Contrast, Arteriography Exam date and time: 09/10/2024 5:46 PM Age: 69 years old Clinical indication: Visual disturbance; Additional info: Cp to back, abd pain near syncope, vision deficit TECHNIQUE: Imaging protocol: Computed tomographic angiography of the head with contrast. Exam focused on the arteries. 3D rendering (Not supervised by radiologist): MIP and/or 3D reconstructed images were created by the technologist. Radiation optimization: All CT scans at this facility use at least one of these dose optimization techniques: automated exposure control; mA and/or kV adjustment per patient size (includes targeted exams where dose is matched to clinical indication); or iterative reconstruction. Contrast material: ISOVUE; Contrast volume: 80 ml; Contrast route: INTRAVENOUS (IV); COMPARISON: CT HEAD/BRAIN WO CON 09/10/2024 5:43 PM FINDINGS: ANTERIOR CIRCULATION: Right internal carotid artery: The right ICA petrous, cavernous, and supraclinoid segments demonstrate mild calcific plaque without stenosis. Right middle cerebral artery: Unremarkable. No occlusion or significant stenosis. No aneurysm. Right anterior cerebral artery: Right A1 segment is dominant. No occlusion or significant stenosis. No aneurysm. Left internal carotid artery: The left ICA petrous segment is unremarkable. The cavernous and supraclinoid segments demonstrate mild calcific plaque without stenosis. Left middle cerebral artery: Unremarkable. No occlusion or significant stenosis. No aneurysm. Left anterior cerebral artery: Hypoplastic left A1 segment. 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 No evidence of rupture. No stenosis. POSTERIOR CIRCULATION: Right vertebral artery: Unremarkable. No occlusion or significant stenosis. No aneurysm. Left vertebral artery: Unremarkable. No occlusion or significant stenosis. No aneurysm. Basilar artery: Unremarkable. No occlusion or significant stenosis. No aneurysm. Right posterior cerebral artery: Unremarkable. No occlusion or significant stenosis. No aneurysm. Left posterior cerebral artery: Normal variant persistent origin with hypoplastic left P1 segment. No occlusion or significant stenosis. No aneurysm. Veins: The dural venous sinuses and major cortical veins enhance appropriately without evidence of thrombosis. Brain: No enhancing brain lesions or vascular malformations are identified. Moderate generalized cerebral/cerebellar atrophy. Mild bilateral white matter hypodensities which are nonspecific but most commonly associated with chronic microvascular ischemia in this age group. Cerebral ventricles: Mild compensatory ventriculomegaly secondary to central atrophy. Bones/joints: Unremarkable. No acute fracture. Prior sinus surgery noted. Soft tissues: Unremarkable. IMPRESSION: 1. No evidence of large vessel occlusion or significant stenosis. No evidence of arterial dissection. 2. 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 3. Nonemergent findings detailed above.
--- NOTE | 2024-09-10 16:02 | PC.NURSE ---
rounded on patient. she voiced she didnt need anything at this time. call light is within reach. Daughter is present at bedside.
[2024-09-10 16:33] LABS: Lactate Venous 1.7 mmol/L (0.4-2.0); VBG Base Excess 1.3 mmol/L (-2.4-2.3); VBG HCO3 27.8 mmol/L (23-30); VBG Oxygen Saturation 64.2 % (50-70); VBG PO2 35.4 mmol/L (28-40); VBG Total CO2 29.6 mmol/L (23-27)
[2024-09-10 16:35] LABS: VBG PCO2 57.9 mmol/L (35-51)
[2024-09-10 16:36] LABS: Basophils % 0.4 % (0.1-2.0); Eosinophils # 0.1 K/mm3 (0.0-0.4); Eosinophils % 1.5 % (0.1-12.0); Hemoglobin 11.4 g/dL (12.2-16.2); Lymphocytes # 0.8 K/mm3 (0.7-4.5); Lymphocytes % 14.9 % (10-50); Mean Corpuscular HGB Conc 33.5 g/dL (31.8-35.4); Mean Corpuscular Hemoglobin 29.5 pg (27.0-31.2); Mean Corpuscular Volume 87.9 fl (81-99); Mean Platelet Volume 10.9 fl (7.4-10.4); Monocytes # 0.3 K/mm3 (0.1-1.0); Monocytes % 6.3 % (1.7-9.3); Neutrophils % 76.7 % (37.0-80.0); Platelet Count 150 K/mm3 (142-424); Red Blood Count 3.87 M/mm3 (4.20-5.40); Red Cell Distribution Width 12.7 % (11.5-17.5); White Blood Count 5.2 K/mm3 (4.8-10.8)
[2024-09-10 16:42] LABS: Albumin Level 4.2 g/dl (3.5-5.0); Chloride 94 mmol/L (98-107); Sodium 131 mmol/L (136-145)
[2024-09-10 16:45] LABS: Alanine Aminotransferase 24 U/L (12-78); Albumin/Globulin Ratio 1.8 (1.1-1.8); Alkaline Phosphatase 98 U/L (38-126); Aspartate Amino Transferase 31 U/L (14-36); Bilirubin,Total 0.3 mg/dl (0.2-1.3); Blood Urea Nitrogen 21 mg/dl (7-17); Carbon Dioxide 31 mmol/L (22.0-30.0); Creatinine Clearance Estimated 57 mL/min (50-200); Estimated Glomerular Filt Rate 50 ml/min (>60); GFR (African American) 60 ML/MIN (>60); Globulin 2.3 g/dL (1.3-3.2); Magnesium 2.1 mg/dl (1.6-2.3); Total Protein,Serum 6.5 g/dl (6.3-8.2)
[2024-09-10 16:46] LABS: Calcium 8.2 mg/dl (8.4-10.2)
[2024-09-10 16:48] LABS: Activated Partial Thrombo Time 24.1 seconds (22.5-28.5); INR 0.94 (0.9-1.1); Prothrombin Time 10.5 seconds (9.2-12.1)
[2024-09-10] MEDS: METHYLPREDNISOLONE SOD SUCC 125MG VIAL 125 MG IV (16:51)
[2024-09-10] MEDS: diphenhydrAMINE 50MG/ML VIAL 50 MG IV (16:51)
[2024-09-10] MEDS: ASPIRIN 81MG CHEWABLE TABLET 324 MG PO (16:51)
[2024-09-10 16:53] LABS: Glucose 415 mg/dl (74-100)
--- NOTE | 2024-09-10 16:53 | PC.NURSE ---
CRITICAL GLUCOSE 415, PT NAME AND R/V. DR KOCH NOTIFIED
[2024-09-10] MEDS: ACETAMINOPHEN 500MG TAB 1000 MG PO (16:54)
[2024-09-10 16:57] LABS: NT Pro Brain Natriuretic Pep. 772 pg/mL (0-125)
[2024-09-10 17:02] LABS: Troponin I < 0.01 ng/ml (0.00-0.034)
[2024-09-10 17:05] LABS: T4 (Thyroxine) 14.6 ug/dl (5.53-11.0)
[2024-09-10 17:19] LABS: C-Reactive Protein 1.2 mg/L (0-4); Thyroid Stimulating Hormone 0.22 uIU/mL (0.465-4.68)
[2024-09-10 17:28] LABS: Hemoglobin A1C 8.5 % (4.0-6.0)
[2024-09-10] MEDS: IOPAMIDOL-370 (76%);100ML BOTTLE 140 ML IV (17:45)
[2024-09-10] MEDS: 0.9 % SODIUM CHLORIDE 50 ML VIAL 100 ML IV (17:45)
[2024-09-10] MEDS: SODIUM CHLORIDE 0.9% 10ML SYR (RAD ONLY) 10 ML IV (17:45)
[2024-09-10] MEDS: INSULIN HUMAN REGULAR 100 UNITS/ML 10ML VIAL 7 UNIT IV (18:05)
--- NOTE | 2024-09-10 18:13 | PC.NURSE ---
DR KOCH SPEAKING WITH DANIEL
--- NOTE | 2024-09-10 18:23 | PC.NURSE ---
Patient requsted to be put on a purewick. Patient was put on a purewick and is comfortable in bed. Call light in reach. daughter is at bedside.
--- NOTE | 2024-09-10 18:40 | PC.NURSE ---
FS [id number]
--- NOTE | 2024-09-10 18:45 | PC.NURSE ---
Rechecked patients glucose. she is comfortable and resting. call light is in reach. daughter is at bedside.
[2024-09-10 18:50] LABS: Lactic Acid 0.9 mmol/L (0.7-2.1)
--- NOTE | 2024-09-10 19:03 | PC.NURSE ---
ROUNDED ON THE PT. THE PT VOICES THAT SHE DOES NOT NEED ANYTHING AT THIS TIME. CALL LIGHT IS WITHIN REACH OF THE PT.
[2024-09-10] MEDS: AZITHROMYCIN 500 MG in 0.9 % SODIUM CHLORIDE 250 ML 250 MG IV (19:05)
[2024-09-10 19:34] LABS: Troponin I < 0.01 ng/ml (0.00-0.034)
--- NOTE | 2024-09-10 20:11 | PC.NURSE ---
report called to IRIS Wetzel
--- NOTE | 2024-09-10 20:26 | PC.NURSE ---
Ptient arrived to floor via wheelchair from ED at 20:24.
--- NOTE | 2024-09-10 21:23 | EXP.HP ---
History of Present Illness *Admission Date: 09/10/24 *Reason for visit:: Severe headache with neurologic changes and changes in vision, *History of present illness: Patient stated that she was having a very good day was eating lunch when suddenly had this terrible pain in the back of her head felt lightheaded started to get tunnel vision and felt like she was going to have a syncopal spell. At present patient is stable., Back to her baseline not having any headache.. Patient noted that she was in [facility] for DKA from 01 September until the ., Will request old records., There really is very little old records in our charting system to be able to evaluate this event for many others.. Blood sugars are noted to being high. 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 She also is seeing a Dr. Juvencio Orozco at [facility]., She is wearing a stick on Holter type device that is read by her phone. And has a follow-up with the matchbook assembler on September 30. Patient and patient's daughter noted that she did have blood pressure medication changes during her last hospital admission at [facility] the daughter has brought to plastic bags that have the medication she is actually taking at this time. She was prescribed Ultram but felt unsafe in taking this with her other medicines and has it at home but has never taken it. She said she received it once in the hospital and it made her constipated. Patient noted that she has smoked for more than 20 years but stopped [address] Turner and myself took report from the ER physician. About this complicated case. Unable to determine if this is an atypical migraine versus, TIA versus, a light stroke. The ER doctor did speak with [facility] the images were gone over and they found nothing acute. Dr. Turner and the ER physician do feel it be prudent to get an MRI in the a.m. to make sure that there was not an underlying CVA. And also to look at better control of blood sugar. Patient is stable at this time and will be admitted to the floor. Emergency room documentation labs and imaging have been reviewed [facility] Disclaimer: The information contained in this section may have been updated after the patient was seen, as this information can be updated by other users. Medical History Kidney failure COPD (chronic obstructive pulmonary disease) Afib CHF (congestive heart failure) Schizophrenia Thyroid disease Depression Anxiety Seizure disorder History of gastroesophageal reflux (GERD) Urinary tract infection Kidney stone Migraine Diabetes mellitus, type 2 Hyperlipidemia Hypertension Surgical History History of tubal ligation History of hysterectomy History of cholecystectomy Social History Smoking Status: Former smoker alcohol intake: never current occupational status: other Travel in the last 8 weeks: None Have you lived/traveled outside [place] in past 30 days?: No Contact w/someone who lives/traveled outside US past 30 days?: No Exposure to someone with infectious disease in past 14 days?: No Do you have a fever (greater than 100.4 F or 38 C)?: No Have you tested positive for COVID-19: No Exposed to someone with COVID-19 in past 14 days?: No Do you have a sore throat?: No Do you have a cough?: No Do you have any weakness?: No Do you have any diarrhea?: No Are you experiencing any unusual bleeding?: No Do you have any muscle aches/pain?: No Do you have any abdominal pain?: No Are you experiencing loss of taste or smell?: No Review of Systems Review of Systems Review of systems:: pertinent systems reviewed and negative unless documented below Review of systems (narrative): Patient noted that she takes Tylenol at home had it listed as an allergy nurse will recheck on this I double checked with the patient and her daughter and Tylenol is what she takes for her headaches Constitutional Constitutional: Reports as per HPI Comments: Patient is no acute distress at this time, daughter is in room. Patient is alert oriented and is getting a good history. Eyes Eyes: Reports as per HPI Comments: Patient denies any vision changes. History of cataract surgery ENT Ears, Nose, Mouth, and Throat: Reports as per HPI Comments: Patient noted having no hoarseness hoarseness or problems with swallowing. Feels her voice is normal and having no trouble talking *Cardiovascular Cardiovascular: Reports as per HPI Comments: Denies chest pain, gave a history of some peripheral edema but presently having none *Respiratory Respiratory: Reports as per HPI Comments: Patient does not have any shortness of breath or any respiratory difficulty *Gastrointestinal Gastrointestinal: Reports as per HPI and Reports abdominal pain Comments: Patient expressed just a mild generalized abdominal pain with some bloating feels she might still be constipated *Genitourinary Genitourinary: Reports as per HPI Comments: Noted on exam clear yellow urine from pure wick that was placed greater than 700 cc in receptacle *Musculoskeletal Musculoskeletal: Reports as per HPI Comments: Moves all extremities without any difficulty she states that her arms and legs feel fine Integumentary/Breasts Skin/Breast: Reports as per HPI *Neurologic Neurologic: Reports as per HPI Psychiatric Psychiatric: Reports as per HPI Endocrine Endocrine: Reports as per HPI Hematologic/Lymphatic Hematologic/Lymphatic: Reports as per HPI Allergic/Immunologic Allergic/Immunologic: Reports as per HPI Meds Home Medications and Allergies Home Medications ?Medication ?Instructions ?Recorded ?Confirmed ?Type alendronate 70 mg tablet 70 mg PO WEEKLY 09/10/24 09/10/24 History atorvastatin 80 mg tablet 80 mg PO DAILY 09/10/24 09/10/24 History cetirizine 10 mg tablet 10 mg PO DAILY 09/10/24 09/10/24 History divalproex 250 mg tablet,extended 250 mg PO BID 09/10/24 09/10/24 History release 24 hr escitalopram oxalate 10 mg tablet 10 mg PO DAILY 09/10/24 09/10/24 History ezetimibe 10 mg tablet 10 mg PO DAILY 09/10/24 09/10/24 History levothyroxine 75 mcg tablet 75 mcg PO DAILY 09/10/24 09/10/24 History (Synthroid) olanzapine 10 mg tablet 10 mg PO HS 09/10/24 09/11/24 History olmesartan 20 1 tab PO DAILY 09/10/24 09/11/24 History mg-hydrochlorothiazide 12.5 mg tablet tizanidine 4 mg tablet 4 mg PO TID 09/10/24 09/10/24 History tolterodine 4 mg capsule,extended 4 mg PO DAILY 09/10/24 09/10/24 History release 24 hr insulin aspart U-100 100 unit/mL 0 unit SQ DIRECTED 09/11/24 09/11/24 History (3 mL) subcutaneous pen (Novolog FlexPen U-100 Insulin aspart) insulin glargine U-300 conc 300 26 unit SQ HS 09/11/24 09/11/24 History unit/mL (1.5 mL) subcutaneous pen (Toujeo SoloStar U-300 Insulin) lisinopril 20 mg tablet 20 mg PO HS 09/11/24 09/11/24 History New Prescriptions to Start Prescriptions: Allergies Allergy/AdvReac Type Severity Reaction Status Date / Time codeine Allergy Mild Rash Verified 09/10/24 15:17 Iodinated Contrast Media Allergy Unknown pt unable Verified 09/10/24 15:17 to recall latex Allergy Unknown pt unable Verified 09/10/24 15:17 to recall morphine Allergy Unknown pt uable Verified 09/10/24 15:17 to recall Penicillins Allergy Unknown pt unable Verified 09/10/24 15:17 to recall propranolol Allergy Unknown pt unable Verified 09/10/24 15:17 to recall acetaminophen (From Tylenol) Allergy Rash Verified 09/10/24 15:17 Exam Data for Last 24 hours Vital signs and Labs for Last 24 Hours: Temp Pulse Resp BP Pulse Ox O2 Del Method 98.2 F 79 22 154/79 H 96 Room Air 09/10/24 20:09 09/10/24 20:09 09/10/24 20:09 09/10/24 20:09 09/10/24 18:30 09/10/24 20:09 Laboratory Results - last 24 hr 09/10/24 15:42: VBG pH 7.30 L, VBG pCO2 57.9 H, VBG pO2 35.4, VBG HCO3 27.8, VBG Total CO2 29.6 H, VBG O2 Saturation 64.2, VBG Base Excess 1.3, VBG Lactic Acid 1.7 09/10/24 16:20: WBC 5.2, RBC 3.87 L, Hgb 11.4 L, Hct 34.0 L, MCV 87.9, MCH 29.5, MCHC 33.5, RDW 12.7, Plt Count 150, MPV 10.9 H, Neut % (Auto) 76.7, Lymph % (Auto) 14.9, [place] % (Auto) 6.3, Eos % (Auto) 1.5, Baso % (Auto) 0.4, Neut # (Auto) 4.0, Lymph # (Auto) 0.8, [place] # (Auto) 0.3, Eos # (Auto) 0.1, Baso # (Auto) 0.0, PT 10.5, INR 0.94, APTT 24.1, Sodium 131 L, Potassium 5.0, Chloride 94 L, Carbon Dioxide 31 H, Anion Gap 11.0, BUN 21 H, Creatinine 1.10 H, Estimated Creat Clear 57, Estimated GFR 50 L, Est GFR ( Amer) 60, Glucose 415 H*, Hemoglobin A1c 8.5 H, Calcium 8.2 L, Magnesium 2.1, Total Bilirubin 0.3, AST 31, ALT 24, Alkaline Phosphatase 98, Troponin I < 0.01, C-Reactive Protein 1.2, NT-Pro-B Natriuret Pep 772 H, Total Protein 6.5, Albumin 4.2, Globulin 2.3, Albumin/Globulin Ratio 1.8, TSH 0.22 L, Thyroxine (T4) 14.6 H 09/10/24 18:08: Lactate 0.9, Troponin I < 0.01 I & O for Last 24 hours: Intake & Output 09/08/24 09/09/24 09/10/24 09/11/24 05:59 05:59 05:59 05:59 Weight 161 lb Radiology Reports for the Last 24 Hours: All imaging showed no acute process Narrative: Lab values slightly elevated creatinine elevated blood sugar rest relatively normal Constitutional Constitutional: no acute distress and average body habitus Comments: Patient is alert oriented answering questions well she is lying in bed on a stretcher in the emergency room daughter is in room while the exam is going on *Routine HEENT Exam Head: Present normocephalic and atraumatic Eye: Present EOMI, PERRL and normal accommodation ENT: Present mucous membranes moist, oropharynx clear and nares patent *Routine Neck Exam Neck: Present supple and full ROM Comments: Examination of the neck no significant tenderness found no lymphadenopathy found. No carotid bruits heard equal bilateral symmetrical pulses Routine Chest/Breast/Axilla Exam Comments: No tenderness was found during the exam listening to the lungs. Breasts were not examined *Routine Respiratory Exam Respiratory: Present CTA bilaterally, normal respiratory effort, able to speak in complete sentences and symmetric chest movement Comments: Evaluation of lungs completely normal *Routine Cardiovascular Exam Cardiovascular: Present RRR, Normal S1 and Normal S2 Comments: Patient noted that she had 2 valves supposedly to have some regurg. ER notes and mild murmur. But on examination of the patient it was very difficult to hear anything but very clear S1-S2 *Routine Abdominal Exam Abdominal: Present soft Comments: Generalized tenderness throughout entire abdomen to palpation. Slightly hyperactive bowel sounds but no distention *Routine Rectal Exam Rectal:: deferred *Routine Genitalia Exam Genitalia:: deferred *Routine Extremities Exam Extremities: Present pulses intact and normal capillary refill Routine Back/Spine/Pelvis Exam Back/Spine: Present full ROM Comments: Patient is able to sit up and move without assistance no sign of injury to back or pelvis *Routine Skin Exam Skin: Present intact, dry, warm and normal turgor Comments: No rashes or signs of injury found *Routine Neurological Exam Neurological: Present alert, oriented X3, CN II-XII intact, normal reflexes, moving all extremities, normal tone, vision grossly intact, hearing grossly intact and normal speech Comments: Neurologic exam at this time is perfectly normal ER noted a slight bit of drift and may be a slight facial nerve deficit., These were not present during my exam, short-term and long-term memory appears to be well intact Routine Psychiatric Exam Psychiatric: Present normal affect, normal thought process, cooperative and good judgment Comments: Patient notes slight obsession with certain medications. Also her and her daughter are quite fixated on individual glucose readings. H&P: Result Impressions 1. Significant posterior headache pain with vision change question TIA 2. Poorly controlled diabetes mellitus 3. Mild acute kidney injury Imaging and Cardiology CT scan - abdomen: Status: image reviewed by me Additional comments: Moderate amount of bowel gas and stool noted some aortic calcifications mild to moderate CT scan - head: Status: image reviewed by me Additional comments: No acute findings. Assessment and Plan *Assessment and plan (1) Occipital stroke: Status: Acute Category: Medical Code(s): I63.9 - Cerebral infarction, unspecified (2) TIA (transient ischemic attack): Status: Acute Category: Medical Code(s): G45.9 - Transient cerebral ischemic attack, unspecified (3) Poorly controlled diabetes mellitus: Status: Acute Category: Medical Code(s): E11.65 - Type 2 diabetes mellitus with hyperglycemia (4) Atypical cluster headache: Status: Acute Category: Medical Code(s): G44.009 - Cluster headache syndrome, unspecified, not intractable (5) Abdominal discomfort: Status: Acute Category: Medical Code(s): R10.9 - Unspecified abdominal pain (6) Acute kidney injury: Status: Acute Category: Medical Code(s): N17.9 - Acute kidney failure, unspecified Plan 1. After discussion of case with ER, Medicine decided to admit patient to [facility] observation., To continue to monitor neurological status and plan for MRI of the head with out contrast in the a.m. 2. Diabetes mellitus poorly controlled with elevated hemoglobin A1c 3. Long history of headache, will monitor for pain or changes in neurologic status 4 abdominal discomfort ; question whether constipation or bowel gas. Will provide as needed medication Rounded on patient after nurse practitioner. Personally examined and interviewed patient. Agree with exam findings and care plan as documented. Suspect occipital stroke versus TIA versus complex migraine. MRI pending for the morning. Per my review of CT, has questionable hypoperfusion in left occipital lobe. CBC, CMP, magnesium ordered for the morning. Symptoms resolving by the time of arrival to the floor.
--- NOTE | 2024-09-10 21:34 | PC.NURSE ---
Addendum entered by Brielle Saul RN 09/11/24 06:09: pt has only had 2 small diet sodas t/o night. 0600 fsbg 540, notified erik and placed order for random glucose. Addendum entered by Brielle Saul RN 09/11/24 04:33: no issues t/o the night. pt pleasant, a&o x4, sb assist with ambulation. no deficits noted. pt has slept well so far this shift.cb within reach no needs at this time. Original Note: home meds sent home with daughter
[2024-09-10 21:57] LABS: POC Glucose,Bedside 298 (70-110)
[2024-09-10 22:19] LABS: Troponin I 0.02 ng/ml (0.00-0.034)
[2024-09-10] MEDS: humaLOG 100 UNITS/ML 10ML VIAL (SSI) SUBCUT (22:32)
[2024-09-11 00:07] LABS: Microscopic, Urine URINE MICROSCOPIC (MICROSCOPIC)
[2024-09-11 00:25] LABS: Appearance,Urine CLEAR (Clear); Bilirubin,Urine Negative (Negative); Blood, Urine 1+ (Negative); Color,Urine YELLOW (Yellow); Glucose,Urine (UA) 3+ (Negative); Ketones,Urine Negative (Negative); Leukocyte Esterase,Urine Negative (Negative); Nitrate,Urine Negative (Negative); Protein,Urine Negative (Negative); Urobilinogen,Urine 0.2 EU/dl (0.2)
[2024-09-11 01:07] LABS: WBC,Urine Occasional #/hpf (0-3)
[2024-09-11 01:08] LABS: Bacteria,Urine Trace /lpf; RBC,Urine Occasional #/hpf (0-3); Squamous Epithelial Cell,Urine Occasional #/hpf (0-5)
[2024-09-11 04:00] VITALS: BP 161/79; PULSE 86; RESP 16; TEMP 36.8; O2SAT 95; BMI 28.5
--- NOTE | 2024-09-11 05:55 | EXP.EVENT.NO ---
Patient's blood sugar has come back at 540. Will give 10 units IV now also 10 units subcu will recheck blood sugar in 2 hours at 8 AM
[2024-09-11 05:56] LABS: POC Glucose,Bedside 540 (70-110)
[2024-09-11 06:24] LABS: Albumin Level 3.9 g/dl (3.5-5.0); Chloride 96 mmol/L (98-107)
[2024-09-11 06:25] LABS: Potassium 5.9 mmoL/L (3.5-5.1); Sodium 131 mmol/L (136-145)
[2024-09-11 06:26] LABS: Basophils % 0.1 % (0.1-2.0); Hematocrit 30.6 % (37.0-47.0); Lymphocytes # 0.5 K/mm3 (0.7-4.5); Monocytes # 0.1 K/mm3 (0.1-1.0)
[2024-09-11 06:27] LABS: Alanine Aminotransferase 22 U/L (12-78); Anion Gap 13.9 mEq/L (5-15); Blood Urea Nitrogen 27 mg/dl (7-17); Carbon Dioxide 27 mmol/L (22.0-30.0); Creatinine Clearance Estimated 52 mL/min (50-200); Estimated Glomerular Filt Rate 45 ml/min (>60); GFR (African American) 54 ML/MIN (>60)
[2024-09-11 06:28] LABS: Albumin/Globulin Ratio 1.7 (1.1-1.8); Alkaline Phosphatase 90 U/L (38-126); Aspartate Amino Transferase 24 U/L (14-36); Bilirubin,Total 0.3 mg/dl (0.2-1.3); Calcium 8.1 mg/dl (8.4-10.2); Globulin 2.3 g/dL (1.3-3.2); Magnesium 2.2 mg/dl (1.6-2.3); Total Protein,Serum 6.2 g/dl (6.3-8.2)
[2024-09-11 06:30] LABS: Glucose 510 mg/dl (74-100)
[2024-09-11] MEDS: INSULIN HUMAN REGULAR 100 UNITS/ML 10ML VIAL 10 UNIT IVP (06:31)
[2024-09-11] MEDS: humaLOG 100 UNITS/ML 10ML VIAL (SSI) 10 UNIT SUBCUT (06:31)
[2024-09-11 06:38] LABS: Lymphocytes % 6.9 % (10-50); Mean Corpuscular HGB Conc 33.7 g/dL (31.8-35.4); Mean Corpuscular Hemoglobin 29.6 pg (27.0-31.2); Mean Corpuscular Volume 87.9 fl (81-99); Mean Platelet Volume 11.9 fl (7.4-10.4); Monocytes % 1.8 % (1.7-9.3); Neutrophils # 7.1 K/mm3 (1.8-7.8); Neutrophils % 90.9 % (37.0-80.0); Platelet Count 159 K/mm3 (142-424); Red Blood Count 3.48 M/mm3 (4.20-5.40); Red Cell Distribution Width 13.2 % (11.5-17.5); White Blood Count 7.8 K/mm3 (4.8-10.8)
[2024-09-11 06:39] LABS: Hemoglobin 10.3 g/dL (12.2-16.2)
--- NOTE | 2024-09-11 06:39 | MR_ITS ---
FINAL REPORT TECHNIQUE: Multiplanar and multisequence imaging of the brain was obtained without contrast. CLINICAL HISTORY: STROKE LIKE SYMPTOMS OCCIPITAL COMPARISON: None FINDINGS: There is mild global atrophy. There is no mass effect or midline shift. Foci of periventricular and subcortical white matter are nonspecific. No hydrocephalus. The cerebellum and brainstem have an unremarkable appearance. There are no areas of restricted diffusion on diffusion weighted images to suggest acute infarct. Soft tissues are without acute abnormality. IMPRESSION: No acute intracranial abnormality. Nonspecific T2 abnormality within the periventricular and subcortical white matter. Differential considerations include changes of chronic small vessel ischemia as most likely in this age group. Reviewed, Interpreted and Dictated by Agueda Brady MD Transcribed by Dominga Penny Authenticated and [facility]
[2024-09-11 06:40] LABS: MANUAL DIFFERENTIAL MANUAL DIFFERENTIAL (MANUAL DIFF)
[2024-09-11 07:32] LABS: VBG Base Excess -2.4 mmol/L (-2.4-2.3); VBG HCO3 23.3 mmol/L (23-30); VBG Oxygen Saturation 91.9 % (50-70); VBG PCO2 43.7 mmol/L (35-51); VBG PH 7.35 mmol/L (7.31-7.41); VBG PO2 55.1 mmol/L (28-40); VBG Total CO2 24.7 mmol/L (23-27)
[2024-09-11 07:33] LABS: Lactate Venous 2.5 mmol/L (0.4-2.0)
[2024-09-11 07:39] LABS: Acanthocytes 2+; Lymphocytes % 7 % (10-50); Monocytes % 2 % (2-9); Neutrophils % 86 % (42-76); Platelet Estimate Normal; Total Cells Counted 100
[2024-09-11 08:00] VITALS: BP 160/78; PULSE 84; RESP 17; TEMP 36.7; O2SAT 97
[2024-09-11] MEDS: INSULIN GLARGINE 100 UNITS/ML 3ML FLEXPEN 20 UNIT SUBCUT (09:48)
[2024-09-11] MEDS: LEVOTHYROXINE 75MCG (0.075MG) TAB 75 MCG PO (09:49)
[2024-09-11] MEDS: IRBESARTAN 150MG TAB 150 MG PO (09:49)
[2024-09-11] MEDS: CITALOPRAM 20MG TABLET 20 MG PO (09:49)
[2024-09-11] MEDS: DIVALPROEX 250MG (Delayed-Release) TABLET 250 MG PO (09:49)
[2024-09-11] MEDS: hydroCHLOROthiazide 25MG TABLET 12.5 MG PO (09:50)
--- NOTE | 2024-09-11 09:58 | HMH.PHAINT1 ---
Pharmacy Intervention Comments: HOME MEDICATION LIST VERIFIED USING LIST FROM OUTPATIENT PHARMACY AND PT INTERVIEW
[2024-09-11 10:04] LABS: POC Glucose,Bedside 472 (70-110)
--- NOTE | 2024-09-11 11:18 | P.DS_ITS ---
General Admission date:: 09/10/24 Discharge date: 09/11/24 HPI HPI HPI: Patient stated that she was having a very good day was eating lunch when suddenly had this terrible pain in the back of her head felt lightheaded started to get tunnel vision and felt like she was going to have a syncopal spell. At present patient is stable., Back to her baseline not having any headache.. Patient noted that she was in [facility] for DKA from 01 September until the ., Will request old records., There really is very little old records in our charting system to be able to evaluate this event for many others.. Blood sugars are noted to being high. 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 She also is seeing a Dr. Juvencio Orozco at [place] [facility]., She is wearing a stick on Holter type device that is read by her phone. And has a follow-up with the family service center director on September 30. Patient and patient's daughter noted that she did have blood pressure medication changes during her last hospital admission at [place] the daughter has brought to plastic bags that have the medication she is actually taking at this time. She was prescribed Ultram but felt unsafe in taking this with her other medicines and has it at home but has never taken it. She said she received it once in the hospital and it made her constipated. Patient noted that she has smoked for more than 20 years but stopped [address] Turner and myself took report from the ER physician. About this complicated case. Unable to determine if this is an atypical migraine versus, TIA versus, a light stroke. The ER doctor did speak with [facility] the images were gone over and they found nothing acute. Dr. Turner and the ER physician do feel it be prudent to get an MRI in the a.m. to make sure that there was not an underlying CVA. And also to look at better control of blood sugar. Patient is stable at this time and will be admitted to the floor. Emergency room documentation labs and imaging have been reviewed Hospital Course Hospital Course Hospital Course: 69-year-old female who presented with headache, vision disturbance, pain in chest. After discussion of case with ER, Medicine decided to admit patient to MedSurg observation., Continue to monitor neurologic status overnight. Patient had complete resolution of symptoms by morning. CT head showed potential lesion in occipital region of brain. Patient also noted to have poorly controlled diabetes with A1c of 8.5. Recommend continuing insulin glargine 26 units nightly along with her sliding scale insulin for now. Encouraged to follow-up in the next 1 to 2 weeks with her PCP for further adjustment and management for improved control as her diabetes increases her risk for further complications including strokes. Long history of headache, concern symptom related to complex occipital migraine. He had divalproex 250 mg twice daily for headaches. Also has mood disorder. Continue Lexapro 10 mg daily, olanzapine 10 mg nightly. Continue levothyroxine 75 mcg daily for hypothyroid Suspect occipital stroke versus TIA versus complex migraine. Brain MRI obtained. Showed no acute intracranial abnormality. No signs of acute stroke. Does have nonspecific T2 abnormality within the periventricular and subcortical white matter. This is consistent with chronic small vessel ischemia. Blood pressure mildly elevated. Recommend improved control. Needs follow-up with PCP for manage at. Continue home regimen. As symptoms are resolved, stable to discharge home with further management as an outpatient. Exam Data for Last 24 hours Vital signs and Labs for Last 24 Hours: Temp Pulse Resp BP Pulse Ox O2 Del Method 98.1 F 84 17 160/78 H 97 Room Air 09/11/24 08:00 09/11/24 08:00 09/11/24 08:00 09/11/24 08:00 09/11/24 08:00 09/11/24 08:00 Laboratory Results - last 24 hr 09/10/24 15:42: VBG pH 7.30 L, VBG pCO2 57.9 H, VBG pO2 35.4, VBG HCO3 27.8, VBG Total CO2 29.6 H, VBG O2 Saturation 64.2, VBG Base Excess 1.3, VBG Lactic Acid 1.7 09/10/24 16:20: WBC 5.2, RBC 3.87 L, Hgb 11.4 L, Hct 34.0 L, MCV 87.9, MCH 29.5, MCHC 33.5, RDW 12.7, Plt Count 150, MPV 10.9 H, Neut % (Auto) 76.7, Lymph % (Auto) 14.9, [place] % (Auto) 6.3, Eos % (Auto) 1.5, Baso % (Auto) 0.4, Neut # (Auto) 4.0, Lymph # (Auto) 0.8, [place] # (Auto) 0.3, Eos # (Auto) 0.1, Baso # (Auto) 0.0, PT 10.5, INR 0.94, APTT 24.1, Sodium 131 L, Potassium 5.0, Chloride 94 L, Carbon Dioxide 31 H, Anion Gap 11.0, BUN 21 H, Creatinine 1.10 H, Estimated Creat Clear 57, Estimated GFR 50 L, Est GFR ( Amer) 60, Glucose 415 H*, Hemoglobin A1c 8.5 H, Calcium 8.2 L, Magnesium 2.1, Total Bilirubin 0.3, AST 31, ALT 24, Alkaline Phosphatase 98, Troponin I < 0.01, C-Reactive Protein 1.2, NT-Pro-B Natriuret Pep 772 H, Total Protein 6.5, Albumin 4.2, Globulin 2.3, Albumin/Globulin Ratio 1.8, TSH 0.22 L, Thyroxine (T4) 14.6 H 09/10/24 18:08: Lactate 0.9, Troponin I < 0.01 09/10/24 21:10: POC Glucose 298 H 09/10/24 21:35: Troponin I 0.02 09/11/24 00:00: Urine Color Yellow, Urine Appearance Clear, Urine pH 7.0, Ur Specific [place] 1.010, Urine Protein Negative, Urine Glucose (UA) 3+, Urine Ketones Negative, Urine Blood 1+ A, Urine Nitrate Negative, Urine Bilirubin Negative, Urine Urobilinogen 0.2, Ur Leukocyte Esterase Negative, Urine RBC Occasional, Urine WBC Occasional, Ur Squamous Epith Cells Occasional, Urine Bacteria Trace 09/11/24 05:50: POC Glucose 540 H* 09/11/24 06:05: WBC 7.8 D, RBC 3.48 L, Hgb 10.3 L, Hct 30.6 L, MCV 87.9, MCH 29.6, MCHC 33.7, RDW 13.2, Plt Count 159, MPV 11.9 H, Neut % (Auto) 90.9 H, Lymph % (Auto) 6.9 L, [place] % (Auto) 1.8, Eos % (Auto) 0.0 L, Baso % (Auto) 0.1, Neut # (Auto) 7.1, Lymph # (Auto) 0.5 L, [place] # (Auto) 0.1, Eos # (Auto) 0.0, Baso # (Auto) 0.0, Total Counted 100, Neutrophils % (Manual) 86 H, Band Neutrophils % 5.0, Lymphocytes % (Manual) 7 L, Monocytes % (Manual) 2, Platelet Estimate Normal, Acanthocytes (Spur) 2+, Sodium 131 L, Potassium 5.9 H, Chloride 96 L, Carbon Dioxide 27, Anion Gap 13.9, BUN 27 H D, Creatinine 1.20 H, Estimated Creat Clear 52, Estimated GFR 45 L, Est GFR ( Amer) 54 L, Glucose 510 H* D, Calcium 8.1 L, Magnesium 2.2, Total Bilirubin 0.3, AST 24, ALT 22, Alkaline Phosphatase 90, Total Protein 6.2 L, Albumin 3.9, Globulin 2.3, Albumin/Globulin Ratio 1.7 09/11/24 06:26: VBG pH 7.35, VBG pCO2 43.7, VBG pO2 55.1 H, VBG HCO3 23.3, VBG Total CO2 24.7, VBG O2 Saturation 91.9 H, VBG Base Excess -2.4, VBG Lactic Acid 2.5 H 09/11/24 09:47: POC Glucose 472 H* I & O for Last 24 hours: Intake & Output 09/08/24 09/09/24 09/10/24 09/11/24 23:59 23:59 23:59 23:59 Intake Total 360 / 360 Output Total 100 / 100 1200 / 1200 Balance -100 / -100 -840 / -840 Weight 61.689 kg 73.028 kg Constitutional Constitutional: no acute distress, chronically ill appearing and cooperative *Routine HEENT Exam Head: Present normocephalic Eye: Present EOMI and PERRL ENT: Present mucous membranes moist *Routine Neck Exam Neck: Present supple; Absent lymphadenopathy *Routine Respiratory Exam Respiratory: Present CTA bilaterally *Routine Cardiovascular Exam Cardiovascular: Present RRR *Routine Abdominal Exam Abdominal: Present soft and normoactive bowel sounds; Absent tenderness *Routine Rectal Exam Patient deferred: visual exam *Routine Exam Patient deferred: external exam *Routine Extremities Exam Extremities: Absent cyanosis, clubbing or edema *Routine Skin Exam Skin: Present intact and warm; Absent rash *Routine Neurological Exam Neurological: Present alert, oriented X3, CN II-XII intact and moving all extremities; Absent altered mental status Results Data Completed and Pending Labs on day of discharge: Labs from last 24 hours 09/11/24 09/11/24 09/11/24 09:47 06:26 06:05 WBC 7.8 D RBC 3.48 L Hgb 10.3 L Hct 30.6 L MCV 87.9 MCH 29.6 MCHC 33.7 RDW 13.2 Plt Count 159 MPV 11.9 H Neut % (Auto) 90.9 H Lymph % (Auto) 6.9 L [place] % (Auto) 1.8 Eos % (Auto) 0.0 L Baso % (Auto) 0.1 Neut # (Auto) 7.1 Lymph # (Auto) 0.5 L [place] # (Auto) 0.1 Eos # (Auto) 0.0 Baso # (Auto) 0.0 Total Counted 100 Neutrophils % (Manual) 86 H Band Neutrophils % 5.0 Lymphocytes % (Manual) 7 L Monocytes % (Manual) 2 Platelet Estimate Normal Acanthocytes (Spur) 2+ PT INR APTT VBG pH 7.35 VBG pCO2 43.7 VBG pO2 55.1 H VBG HCO3 23.3 VBG Total CO2 24.7 VBG O2 Saturation 91.9 H VBG Base Excess -2.4 VBG Lactic Acid 2.5 H Sodium 131 L Potassium 5.9 H Chloride 96 L Carbon Dioxide 27 Anion Gap 13.9 BUN 27 H D Creatinine 1.20 H Estimated Creat Clear 52 Estimated GFR 45 L Est GFR ( Amer) 54 L Glucose 510 H* D POC Glucose 472 H* Hemoglobin A1c Lactate Calcium 8.1 L Magnesium 2.2 Total Bilirubin 0.3 AST 24 ALT 22 Alkaline Phosphatase 90 Troponin I C-Reactive Protein NT-Pro-B Natriuret Pep Total Protein 6.2 L Albumin 3.9 Globulin 2.3 Albumin/Globulin Ratio 1.7 TSH Thyroxine (T4) Urine Color Urine Appearance Urine pH Ur Specific [place] Urine Protein Urine Glucose (UA) Urine Ketones Urine Blood Urine Nitrate Urine Bilirubin Urine Urobilinogen Ur Leukocyte Esterase Urine RBC Urine WBC Ur Squamous Epith Cells Urine Bacteria 09/11/24 09/11/24 09/10/24 05:50 00:00 21:35 WBC RBC Hgb Hct MCV MCH MCHC RDW Plt Count MPV Neut % (Auto) Lymph % (Auto) [place] % (Auto) Eos % (Auto) Baso % (Auto) Neut # (Auto) Lymph # (Auto) [place] # (Auto) Eos # (Auto) Baso # (Auto) Total Counted Neutrophils % (Manual) Band Neutrophils % Lymphocytes % (Manual) Monocytes % (Manual) Platelet Estimate Acanthocytes (Spur) PT INR APTT VBG pH VBG pCO2 VBG pO2 VBG HCO3 VBG Total CO2 VBG O2 Saturation VBG Base Excess VBG Lactic Acid Sodium Potassium Chloride Carbon Dioxide Anion Gap BUN Creatinine Estimated Creat Clear Estimated GFR Est GFR ( Amer) Glucose POC Glucose 540 H* Hemoglobin A1c Lactate Calcium Magnesium Total Bilirubin AST ALT Alkaline Phosphatase Troponin I 0.02 C-Reactive Protein NT-Pro-B Natriuret Pep Total Protein Albumin Globulin Albumin/Globulin Ratio TSH Thyroxine (T4) Urine Color Yellow Urine Appearance Clear Urine pH 7.0 Ur Specific [place] 1.010 Urine Protein Negative Urine Glucose (UA) 3+ Urine Ketones Negative Urine Blood 1+ A Urine Nitrate Negative Urine Bilirubin Negative Urine Urobilinogen 0.2 Ur Leukocyte Esterase Negative Urine RBC Occasional Urine WBC Occasional Ur Squamous Epith Cells Occasional Urine Bacteria Trace 09/10/24 09/10/24 09/10/24 21:10 18:08 16:20 WBC 5.2 RBC 3.87 L Hgb 11.4 L Hct 34.0 L MCV 87.9 MCH 29.5 MCHC 33.5 RDW 12.7 Plt Count 150 MPV 10.9 H Neut % (Auto) 76.7 Lymph % (Auto) 14.9 [place] % (Auto) 6.3 Eos % (Auto) 1.5 Baso % (Auto) 0.4 Neut # (Auto) 4.0 Lymph # (Auto) 0.8 [place] # (Auto) 0.3 Eos # (Auto) 0.1 Baso # (Auto) 0.0 Total Counted Neutrophils % (Manual) Band Neutrophils % Lymphocytes % (Manual) Monocytes % (Manual) Platelet Estimate Acanthocytes (Spur) PT 10.5 INR 0.94 APTT 24.1 VBG pH VBG pCO2 VBG pO2 VBG HCO3 VBG Total CO2 VBG O2 Saturation VBG Base Excess VBG Lactic Acid Sodium 131 L Potassium 5.0 Chloride 94 L Carbon Dioxide 31 H Anion Gap 11.0 BUN 21 H Creatinine 1.10 H Estimated Creat Clear 57 Estimated GFR 50 L Est GFR ( Amer) 60 Glucose 415 H* POC Glucose 298 H Hemoglobin A1c 8.5 H Lactate 0.9 Calcium 8.2 L Magnesium 2.1 Total Bilirubin 0.3 AST 31 ALT 24 Alkaline Phosphatase 98 Troponin I < 0.01 < 0.01 C-Reactive Protein 1.2 NT-Pro-B Natriuret Pep 772 H Total Protein 6.5 Albumin 4.2 Globulin 2.3 Albumin/Globulin Ratio 1.8 TSH 0.22 L Thyroxine (T4) 14.6 H Urine Color Urine Appearance Urine pH Ur Specific [place] Urine Protein Urine Glucose (UA) Urine Ketones Urine Blood Urine Nitrate Urine Bilirubin Urine Urobilinogen Ur Leukocyte Esterase Urine RBC Urine WBC Ur Squamous Epith Cells Urine Bacteria 09/10/24 15:42 WBC RBC Hgb Hct MCV MCH MCHC RDW Plt Count MPV Neut % (Auto) Lymph % (Auto) [place] % (Auto) Eos % (Auto) Baso % (Auto) Neut # (Auto) Lymph # (Auto) [place] # (Auto) Eos # (Auto) Baso # (Auto) Total Counted Neutrophils % (Manual) Band Neutrophils % Lymphocytes % (Manual) Monocytes % (Manual) Platelet Estimate Acanthocytes (Spur) PT INR APTT VBG pH 7.30 L VBG pCO2 57.9 H VBG pO2 35.4 VBG HCO3 27.8 VBG Total CO2 29.6 H VBG O2 Saturation 64.2 VBG Base Excess 1.3 VBG Lactic Acid 1.7 Sodium Potassium Chloride Carbon Dioxide Anion Gap BUN Creatinine Estimated Creat Clear Estimated GFR Est GFR ( Amer) Glucose POC Glucose Hemoglobin A1c Lactate Calcium Magnesium Total Bilirubin AST ALT Alkaline Phosphatase Troponin I C-Reactive Protein NT-Pro-B Natriuret Pep Total Protein Albumin Globulin Albumin/Globulin Ratio TSH Thyroxine (T4) Urine Color Urine Appearance Urine pH Ur Specific [place] Urine Protein Urine Glucose (UA) Urine Ketones Urine Blood Urine Nitrate Urine Bilirubin Urine Urobilinogen Ur Leukocyte Esterase Urine RBC Urine WBC Ur Squamous Epith Cells Urine Bacteria DS: Diagnosis Discharge Diagnosis (1) Occipital stroke: Status: Acute Code(s): I63.9 - Cerebral infarction, unspecified (2) TIA (transient ischemic attack): Status: Acute Code(s): G45.9 - Transient cerebral ischemic attack, unspecified (3) Poorly controlled diabetes mellitus: Status: Acute Code(s): E11.65 - Type 2 diabetes mellitus with hyperglycemia (4) Atypical cluster headache: Status: Acute Code(s): G44.009 - Cluster headache syndrome, unspecified, not intractable (5) Abdominal discomfort: Status: Acute Code(s): R10.9 - Unspecified abdominal pain (6) Acute kidney injury: Status: Acute Code(s): N17.9 - Acute kidney failure, unspecified Meds Home Medications and Allergies Home Medications ?Medication ?Instructions ?Recorded ?Confirmed ?Type alendronate 70 mg tablet 70 mg PO WEEKLY 09/10/24 09/10/24 History atorvastatin 80 mg tablet 80 mg PO DAILY 09/10/24 09/10/24 History cetirizine 10 mg tablet 10 mg PO DAILY 09/10/24 09/10/24 History divalproex 250 mg tablet,extended 250 mg PO BID 09/10/24 09/10/24 History release 24 hr escitalopram oxalate 10 mg tablet 10 mg PO DAILY 09/10/24 09/10/24 History ezetimibe 10 mg tablet 10 mg PO DAILY 09/10/24 09/10/24 History levothyroxine 75 mcg tablet 75 mcg PO DAILY 09/10/24 09/10/24 History (Synthroid) olanzapine 10 mg tablet 10 mg PO HS 09/10/24 09/11/24 History olmesartan 20 1 tab PO DAILY 09/10/24 09/11/24 History mg-hydrochlorothiazide 12.5 mg tablet tizanidine 4 mg tablet 4 mg PO TID 09/10/24 09/10/24 History tolterodine 4 mg capsule,extended 4 mg PO DAILY 09/10/24 09/10/24 History release 24 hr insulin aspart U-100 100 unit/mL 0 unit SQ DIRECTED 09/11/24 09/11/24 History (3 mL) subcutaneous pen (Novolog FlexPen U-100 Insulin aspart) insulin glargine U-300 conc 300 26 unit SQ HS 09/11/24 09/11/24 History unit/mL (1.5 mL) subcutaneous pen (Toujeo SoloStar U-300 Insulin) lisinopril 20 mg tablet 20 mg PO HS 09/11/24 09/11/24 History New Prescriptions to Start Prescriptions: Allergies Allergy/AdvReac Type Severity Reaction Status Date / Time codeine Allergy Mild Rash Verified 09/10/24 15:17 Iodinated Contrast Media Allergy Unknown pt unable Verified 09/10/24 15:17 to recall latex Allergy Unknown pt unable Verified 09/10/24 15:17 to recall morphine Allergy Unknown pt uable Verified 09/10/24 15:17 to recall Penicillins Allergy Unknown pt unable Verified 09/10/24 15:17 to recall propranolol Allergy Unknown pt unable Verified 09/10/24 15:17 to recall acetaminophen (From Tylenol) Allergy Rash Verified 09/10/24 15:17 Discharge Plan Disposition Patient Disposition: Home, Self-Care Condition: Fair Follow up Plan Follow up with: Provider,Referral, MD [Primary Care Provider] - 1 week (please call for appointment with ) Prescriptions/Medication Reconciliation: Continued atorvastatin 80 mg tablet 80 mg PO DAILY Patient Comments: TAKE 1 TABLET BY MOUTH EVERY DAY cetirizine 10 mg tablet 10 mg PO DAILY Patient Comments: TAKE 1 TABLET BY MOUTH EVERY DAY tizanidine 4 mg tablet 4 mg PO TID tolterodine 4 mg capsule,extended release 24hr 4 mg PO DAILY Patient Comments: TAKE 1 CAPSULE BY MOUTH EVERY DAY alendronate 70 mg tablet 70 mg PO WEEKLY Patient Comments: TAKE 1 TABLET BY MOUTH EVERY 7 DAYS. SEE ADMIN INSTRUCTIONS Rx Instructions: every monday olanzapine 10 mg tablet 10 mg PO HS Patient Comments: TAKE 1 TABLET BY MOUTH EVERY DAY AT NIGHT escitalopram oxalate 10 mg tablet 10 mg PO DAILY Patient Comments: TAKE 1 TABLET BY MOUTH EVERY DAY ezetimibe 10 mg tablet 10 mg PO DAILY divalproex 250 mg tablet extended release 24 hr 250 mg PO BID Patient Comments: TAKE 1 TABLET BY MOUTH TWICE A DAY olmesartan-hydrochlorothiazide 20-12.5 mg tablet 1 tab PO DAILY Patient Comments: TAKE 1 TABLET BY MOUTH EVERY DAY levothyroxine [Synthroid] 75 mcg Tablet 75 mcg PO DAILY insulin aspart U-100 [Novolog FlexPen U-100 Insulin] 100 unit/mL (3 mL) insulin pen 0 unit SQ DIRECTED Patient Comments: USE SLIDING SCALE TO MAX OF 10 UNITS 3 TIMES A DAY Rx Instructions: USE SLIDING SCALE TO MAX OF 10 UNITS 3 TIMES A DAY insulin glargine U-300 conc [Toujeo SoloStar U-300 Insulin] 300 unit/mL (1.5 mL) insulin pen 26 unit SQ HS Patient Comments: SUBCUTANEOUS (INJECT UNDER THE SKIN) 26 UNITS NIGHTLY. lisinopril 20 mg tablet 20 mg PO HS Patient Comments: TAKE 1 TABLET BY MOUTH EVERY DAY Problem Reconciliation Problems Reviewed?: Yes Patient Discharge Instructions ACTIVITY: Continue current activity DIET: continue same diet Patient Instructions: Diabetes, General (Alternative Therapy), DI for Stroke- Ischemic, DI for Headache Print Language: [place] Providers Primary Care Provider: Provider,Referral Admit Provider: Will Turner Attending Provider: Will Turner
[2024-09-11] MEDS: humaLOG 100 UNITS/ML 10ML VIAL (SSI) SUBCUT (11:31)
[2024-09-11 11:32] LABS: POC Glucose,Bedside 493 (70-110)
[2024-09-11 11:32] LABS: Reflex Lactic Add Lactic Reflex
--- NOTE | 2024-09-11 11:32 | PC.NURSE ---
Pt FSBS [id number] MD yanes contacted and gave orders to give 28 units of insulin
--- NOTE | 2024-09-12 13:21 | SW/DCPLANNER ---
Spoke with patient's daughter on the phone. Patient stated that her mom is doing well. Patient's daughter stated that she is aware of her moms upcoming appointment. Patient's daughter stated that they didnt prescribe her mom any new medicine. Patient's daughter stated that she has no concerns or questions at this time. Kelsea Nelson
== END 2024-09-11 14:13 | disposition home or self-care (01) ==
LOC: ER 17:04 → 2ND 19:53
PROVIDERS: Nurse Practitioner Family; Admitting Provider Internal Medicine Adolescent Medicine; Emergency Provider Emergency Medicine; Visit Provider Internal Medicine Adolescent Medicine
DX: I63.9 Cerebral infarction, unspecified (principal); E11.65 Type 2 diabetes mellitus with hyperglycemia; G44.009 Cluster headache syndrome, unspecified, not intractable; R10.9 Unspecified abdominal pain; N17.9 Acute kidney failure, unspecified; I48.91 Unspecified atrial fibrillation; J44.9 Chronic obstructive pulmonary disease, unspecified; Z79.4 Long term (current) use of insulin; Z79.899 Other long term (current) drug therapy; I11.0 Hypertensive heart disease with heart failure; I50.9 Heart failure, unspecified; R29.715 NIHSS score 15
CPT/HCPCS: 36415; 70450; 70496; 70498; 70551; 71045; 71275; 74174; 80053; 81001; 82803; 82962; 83036; 83605; 83735; 83880; 84436; 84443; 84484; 85007; 85025; 85027; 85610; 85730; 86140; 93005; 99291; G0378; J0456; J1200; J1650; J2919; J7050; Q9967